=== PATIENT | female | born 2000 | race Two or more races ===

== ENCOUNTER 2020-09-21 12:01 | Emergency (ER) | payer OTHER ==
[~2020-09-21] VITALS: Ht 154.9 cm; Wt 77.1 kg
[2020-09-21 15:52] VITALS: BP 115/71
== END 2020-09-21 15:25 | disposition home or self-care (01) ==
LOC: ER 12:01
DX: R05 Cough (principal); Z20.828 Contact with and (suspected) exposure to other viral communicable diseases
CPT/HCPCS: 36415; 87426